=== PATIENT | male | born 1955 | race American Indian/Alaskan Native ===

== ENCOUNTER 2017-08-05 19:10 | Emergency (ER) | payer OTHER ==
[2017-08-05 19:43] VITALS: BP 111/75; PULSE 76; RESP 16; TEMP 98.6; O2SAT 98
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
== END 2017-08-05 21:13 | disposition home or self-care (01) ==
LOC: SUPCPDRO 19:10 → C.ER 19:10
DX: S62.301A Unspecified fracture of second metacarpal bone, left hand, initial encounter for closed fracture (principal); V49.9XXA Car occupant (driver) (passenger) injured in unspecified traffic accident, initial encounter